=== PATIENT | female | born 1955 | race Caucasian/White ===

== ENCOUNTER 2024-05-09 07:26 | Day surgery (SDC) | payer OTHER ==
[2024-05-06 13:08] LABS: Absolute Eosinophils 0.2 K/uL (0-0.5); Absolute Lymphocytes (CBC) 2.3 K/uL (0.7-4.9); Absolute Monocytes 0.5 K/uL (0.1-1.3); Absolute Neutrophil 5.5 K/uL (1.8-8.0); Basophils % 0.4 % (0-1.3); Eosinophils % 2.6 % (0-4.4); Hematocrit 48.1 % (36.0-45.0); Hemoglobin 15.8 g/dL (12.0-15.0); MCH 30.8 pg (27.0-35.0); MCHC 32.9 g/dL (32.0-36.0); MCV 93.8 fL (80-100); MPV 7.9 fL (7.6-11.3); Platelets 302 thou/uL (152-406); RBC Red Blood Cell Count 5.13 M/uL (3.86-4.86)
[2024-05-06 13:26] LABS: Anion Gap 10.4 mEq/L (5.0-15.0); Potassium 3.4 mEq/L (3.5-5.1)
--- NOTE | 2024-05-07 12:29 | EKG ---
Test Date: 2024-05-06 Test Time: 12:40:29 Ophthalmology Assistant: CG MEASUREMENT RESULTS: Intervals: Rate: 58 KS: 144 QRSD: 86 QT: 396 QTc: 388 [place]: P: -4 KS: 144 QRS: -81 T: 103 INTERPRETIVE STATEMENTS: Sinus bradycardia with sinus arrhythmia Left axis deviation Cannot rule out Anterior infarct, age undetermined Abnormal ECG No previous ECG available for comparison Electronically Signed On 05-07-24 12:26:23 CDT by Jordan Mathias
[2024-05-09] MEDS ORDERED: NA CHLORIDE 0.9% 1,000 ML ONE (07:50)
[2024-05-09] MEDS ORDERED: propofoL 200 MG/20 ML VIAL IV ONE ×2 (09:04)
[2024-05-09] MEDS ORDERED: ONDANSETRON 4 MG/2 ML VIAL ONE (09:05)
[2024-05-09] MEDS ORDERED: LIDOCAINE 1% MPF 5 ML VIAL ONE (09:05)
[2024-05-09 10:40] VITALS: O2SAT 99
[2024-05-09 10:42] VITALS: BP 140/87; TEMP 97.3
== END 2024-05-09 10:20 | disposition home or self-care (01) ==
LOC: OR 07:26
PROVIDERS: ATTEND Internal Medicine Gastroenterology
PROC: 0DB68ZX Excision of Stomach, Via Natural or Artificial Opening Endoscopic, Diagnostic (ICD-10-PCS; 2024-05-09)
PROC: 0DB38ZX Excision of Lower Esophagus, Via Natural or Artificial Opening Endoscopic, Diagnostic (ICD-10-PCS; principal; 2024-05-09 09:00)
DX: K21.00 Gastro-esophageal reflux disease with esophagitis, without bleeding (principal); K29.50 Unspecified chronic gastritis without bleeding; K31.7 Polyp of stomach and duodenum; R11.2 Nausea with vomiting, unspecified; K92.1 Melena; K21.9 Gastro-esophageal reflux disease without esophagitis
CPT/HCPCS: 93005; 85025; 80048; 36415; 88312; 82947; 88305; 43239; J2704 ×2; J2001; J2405; J7030

== ENCOUNTER → 2024-10-22 | Day surgery (SDC) | payer OTHER ==
[2024-10-17 11:09] LABS: Absolute Eosinophils 0.2 K/uL (0-0.5); Absolute Lymphocytes (CBC) 1.9 K/uL (0.7-4.9); Absolute Monocytes 0.5 K/uL (0.1-1.3); Absolute Neutrophil 4.4 K/uL (1.8-8.0); Basophils % 0.4 % (0-1.3); Eosinophils % 3.3 % (0-4.4); Hematocrit 49.4 % (36.0-45.0); Hemoglobin 16.9 g/dL (12.0-15.0); Lymphocytes % 26.6 % (15.3-44.8); MCH 31.3 pg (27.0-35.0); MCHC 34.2 g/dL (32.0-36.0); MCV 91.6 fL (80-100); MPV 7.6 fL (7.6-11.3); Monocytes % 6.8 % (3.3-12.3); Neutrophils % 62.9 % (41.7-73.7); Platelets 264 thou/uL (152-406); Red Cell Distribution Width 13.7 % (12.1-15.2)
[2024-10-17 11:19] LABS: Anion Gap 6.2 mEq/L (5.0-15.0); Potassium 3.2 mEq/L (3.5-5.1)
[~2024-10-22] MED LIST: GLYCOPYRROLATE 0.2 MG/ML SYR ONE; LIDOCAINE 1% MPF 30 ML VIAL ONE; propofoL 200 MG/20 ML VIAL IV ONE
[2024-10-22] MEDS: NA CHLORIDE 0.9% 1,000 ML ONE (07:30)
[2024-10-22 10:18] VITALS: TEMP 97.6
[2024-10-22 10:20] VITALS: BP 121/75; O2SAT 100
== END ==
LOC: OR 07:13
PROVIDERS: ATTEND Internal Medicine Gastroenterology
PROC: 0DBM8ZX Excision of Descending Colon, Via Natural or Artificial Opening Endoscopic, Diagnostic (ICD-10-PCS; principal; 2024-10-22 08:30)
DX: R19.5 Other fecal abnormalities (principal); K62.5 Hemorrhage of anus and rectum; R11.2 Nausea with vomiting, unspecified; K64.4 Residual hemorrhoidal skin tags; K57.30 Diverticulosis of large intestine without perforation or abscess without bleeding; D12.4 Benign neoplasm of descending colon
CPT/HCPCS: 85025; 80048; 36415; 82947; 88305; 45385; J2704; J2003; J7030